=== PATIENT | male | born 1955 | race African-American/Black ===

== ENCOUNTER 2022-03-08 13:15 | Emergency (ER) | payer MEDICAID, OTHER ==
[~2022-03-08] VITALS: Ht 185.4 cm; Wt 114.0 kg
[~2022-03-08 13:15] MED LIST: AMLO10TA4; CLON0.1T
[2022-03-08 14:55] LABS: BASOPHILS % 0.8 % (0.0-2.0); EOSINOPHILS % 9.2 % (0.0-5.0); HEMATOCRIT. 31.1 % (42.0-52.0); HEMOGLOBIN. 10.6 g/dL (14.0-18.0); LYMPHOCYTES % 23.4 % (20.0-50.0); MEAN CORPUSCULAR VOLUME 90.5 fL (80.0-94.0); MEAN PLATELET VOLUME 7.6 fl (7.4-10.4); MONOCYTES % 8.6 % (2.0-8.0); PLATELET 367 x1000/uL (130-400); RED BLOOD CELL COUNT 3.44 mill/uL (4.7-6.1); RED CELL DISTRIBUTION WIDTH 13.7 % (11.6-14.6)
[2022-03-08 15:00] LABS: CHLORIDE 100 mEq/L (98-107)
[2022-03-08 16:30] VITALS: BP 131/80
== END 2022-03-08 16:50 | disposition home or self-care (01) ==
LOC: ER 13:15
DX: R55 Syncope and collapse (principal); M25.561 Pain in right knee; M25.562 Pain in left knee; E11.9 Type 2 diabetes mellitus without complications; I10 Essential (primary) hypertension; I25.2 Old myocardial infarction; Z98.890 Other specified postprocedural states
CPT/HCPCS: 36415; 71045; 80053; 82962; 83880; 84484; 85025; 99284